=== PATIENT | male | born 1955 | race Caucasian/White ===

== ENCOUNTER 2018-06-04 08:45 | Outpatient (RCR) | payer OTHER | END 2018-06-17 | disposition home or self-care (01) | LOC: MKS.ESL.PT | DX: M70.62 Trochanteric bursitis, left hip (principal); M24.152 Other articular cartilage disorders, left hip; M54.16 Radiculopathy, lumbar region ==

== ENCOUNTER → 2018-10-28 | Outpatient (CLI) | payer OTHER | LOC: MHCPAIN 10:14 | DX: G89.29 Other chronic pain (principal); M47.817 Spondylosis without myelopathy or radiculopathy, lumbosacral region; M54.16 Radiculopathy, lumbar region; M53.3 Sacrococcygeal disorders, not elsewhere classified | CPT/HCPCS: G0463 ==

== ENCOUNTER → 2018-11-13 | Outpatient (CLI) | payer MEDICARE, OTHER | LOC: MHCPAIN 13:15 | DX: M47.817 Spondylosis without myelopathy or radiculopathy, lumbosacral region (principal); M54.16 Radiculopathy, lumbar region | CPT/HCPCS: J1100; Q9967 ==

== ENCOUNTER → 2018-11-26 | Outpatient (CLI) | payer MEDICARE, OTHER | LOC: MHCPAIN 09:56 | DX: G89.29 Other chronic pain (principal); M47.817 Spondylosis without myelopathy or radiculopathy, lumbosacral region; M54.16 Radiculopathy, lumbar region; M53.3 Sacrococcygeal disorders, not elsewhere classified | CPT/HCPCS: G0463 ==

== ENCOUNTER → 2018-12-04 | Outpatient (CLI) | payer MEDICARE, OTHER | LOC: MHCPAIN 09:55 | DX: M47.817 Spondylosis without myelopathy or radiculopathy, lumbosacral region (principal); M54.16 Radiculopathy, lumbar region ==

== ENCOUNTER → 2018-12-29 | Outpatient (CLI) | payer MEDICARE, OTHER | LOC: MHCPAIN 09:04 | DX: G89.29 Other chronic pain (principal); M47.817 Spondylosis without myelopathy or radiculopathy, lumbosacral region; M53.3 Sacrococcygeal disorders, not elsewhere classified | CPT/HCPCS: G0463 ==

== ENCOUNTER → 2019-01-08 | Outpatient (CLI) | payer MEDICARE, OTHER | LOC: MHCPAIN 13:44 | DX: M47.817 Spondylosis without myelopathy or radiculopathy, lumbosacral region (principal); M54.16 Radiculopathy, lumbar region ==

== ENCOUNTER → 2019-01-12 | Outpatient (CLI) | payer MEDICARE, OTHER | LOC: MHCPAIN 13:51 | DX: G89.29 Other chronic pain (principal); M47.817 Spondylosis without myelopathy or radiculopathy, lumbosacral region; M54.16 Radiculopathy, lumbar region; M53.3 Sacrococcygeal disorders, not elsewhere classified | CPT/HCPCS: G0463 ==

== ENCOUNTER → 2019-01-29 | Outpatient (CLI) | payer MEDICARE, OTHER | LOC: MHCPAIN 12:50 | DX: M47.817 Spondylosis without myelopathy or radiculopathy, lumbosacral region (principal); M54.16 Radiculopathy, lumbar region | CPT/HCPCS: J1100; J2250; J3010 ==

== ENCOUNTER → 2019-03-25 | Outpatient (CLI) | payer MEDICARE, OTHER | LOC: MHCPAIN 13:46 | DX: G89.29 Other chronic pain (principal); M47.817 Spondylosis without myelopathy or radiculopathy, lumbosacral region; M53.3 Sacrococcygeal disorders, not elsewhere classified | CPT/HCPCS: G0463 ==

== ENCOUNTER → 2019-09-22 | Outpatient (CLI) | payer MEDICARE, OTHER | LOC: MHCPAIN 09:38 | DX: M47.817 Spondylosis without myelopathy or radiculopathy, lumbosacral region (principal); M54.5 Low back pain; M53.3 Sacrococcygeal disorders, not elsewhere classified; G89.29 Other chronic pain | CPT/HCPCS: G0463 ==

== ENCOUNTER → 2019-10-08 | Outpatient (CLI) | payer MEDICARE, OTHER | LOC: MHCPAIN 08:50 | DX: M47.817 Spondylosis without myelopathy or radiculopathy, lumbosacral region (principal); M54.5 Low back pain; M53.3 Sacrococcygeal disorders, not elsewhere classified; G89.29 Other chronic pain ==

== ENCOUNTER → 2019-10-29 | Outpatient (CLI) | payer MEDICARE, OTHER | LOC: MHCPAIN 13:50 | DX: M47.817 Spondylosis without myelopathy or radiculopathy, lumbosacral region (principal); M54.5 Low back pain; M53.3 Sacrococcygeal disorders, not elsewhere classified; G89.29 Other chronic pain | CPT/HCPCS: G0463; J2250; J3010 ==

== ENCOUNTER → 2019-12-29 | Outpatient (CLI) | payer MEDICARE, OTHER | LOC: MHCPAIN 08:54 | DX: M47.817 Spondylosis without myelopathy or radiculopathy, lumbosacral region (principal); M54.5 Low back pain; M25.552 Pain in left hip; G89.29 Other chronic pain | CPT/HCPCS: G0463 ==

== ENCOUNTER → 2020-04-18 | Outpatient (CLI) | payer MEDICARE, OTHER | LOC: MHCPAIN 10:57 | DX: M47.817 Spondylosis without myelopathy or radiculopathy, lumbosacral region (principal); M54.5 Low back pain; M53.3 Sacrococcygeal disorders, not elsewhere classified; G89.29 Other chronic pain | CPT/HCPCS: G0463 ==